=== PATIENT | male | born 1980 | race Caucasian/White ===

== ENCOUNTER 2022-03-01 22:43 | Emergency (ER) | payer OTHER ==
[~2022-03-01 22:43] MED LIST: BACTRIM DS TAB1 EACH PO; FLEXERIL 10 MG10 MG PO; IBUPROFEN600 MG PO; KEFLEX CAP 500500 MG PO; NEURONTIN 400400 MG PO; SUBOXONE 8 MG-1 EACH SL; VIBRAMYCIN100 MG PO; ZANTAC 150 MG150 MG PO
[2022-03-02] MEDS ORDERED: NAPROSYN500 MG PO (03:04)
== END 2022-03-02 03:22 | disposition home or self-care (01) ==
LOC: ER1 22:43
DX: S46.912A Strain of unspecified muscle, fascia and tendon at shoulder and upper arm level, left arm, initial encounter (principal); W19.XXXA Unspecified fall, initial encounter; Y93.61 Activity, american tackle football
CPT/HCPCS: 73030; 99283